=== PATIENT | male | born 1935 | race Caucasian/White ===

== ENCOUNTER → 2017-03-31 | Outpatient (CLI) | payer MEDICARE ==
[~2017-03-31] MED LIST: ASPI-84; ATEN25TA; ATEN50TA PO; ATOR80TA76 PO; ATR20T; CALC-250 PO; ENAL1TAB16 PO; PRAM15FO3 TP
--- NOTE | 2017-03-31 09:23 | Diagnostic Imaging Report ---
INDICATION: Elevated liver function. FINDINGS: The liver is not enlarged. There is a 4 cm cyst along the medial aspect of the left lobe of the liver which is unchanged in appearance since previous CT scan. Bile ducts are not dilated. The gallbladder is absent. There is considerable obscuration of detail centrally due to bowel gas. The right kidney appears normal. Portal and hepatic vein are patent. The kidneys appear normal without obstruction or mass. No evidence of aortic aneurysm. Aorta is atherosclerotic. There is no ascites. There is a 4 cm complex cyst noted just inferior to the body of the pancreas in the midline which also was present on previous CT scan and appear stable. This may be duodenal in origin. IMPRESSION: 1. Complex cyst along the third portion of the duodenum appear stable measuring 4 cm. 2. Stable appearing cyst medial aspect of the left lobe of the liver. 3. Bile ducts are not dilated. Dictated by: Dictated on workstation # [id number]
== END ==
LOC: RAD 07:11
PROVIDERS: ATTEND Internal Medicine
DX: K76.89 Other specified diseases of liver (principal); K63.89 Other specified diseases of intestine
CPT/HCPCS: 76705

== ENCOUNTER → 2017-08-12 | Outpatient (CLI) | payer MEDICARE ==
--- NOTE | 2017-08-12 20:26 | Diagnostic Imaging Report ---
Three views of the lumbar spine. INDICATION: Low back pain. FINDINGS: There is straightening of the lordotic curvature likely related to muscle spasm. There is preserved vertebral body height in the lumbar spine. There is mild anterior wedging of T12 vertebral body however which could relate to an age-indeterminate compression fracture. The alignment at the posterior spinal line is satisfactory. There is severe disc height loss at the L4-L5 level with anterior and posterior osteophytes. Multilevel anterior osteophytes are seen also at other lumbar spine levels. There is mild disc height loss at the L3-L4 level with vacuum phenomenon at multiple levels seen most prominent at L3-L4. There is also suggestion of facet arthropathy in the mid and lower lumbar spine. The SI joints demonstrate moderate degenerative changes. 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 Dictated by: Dictated on workstation # [id number]
--- NOTE | 2017-08-12 20:30 | Diagnostic Imaging Report ---
Three views of the sacrum and coccyx. INDICATION: Low back pain. FINDINGS: Prominent degenerative changes in the lower lumbar spine are seen. There are moderate sclerotic degenerative changes in the SI joints with question of early left SI joint fusion. There is good alignment. There are radiopaque markers of a mesh probably related to right inguinal hernia repair. IMPRESSION: Moderate degenerative changes and question of early fusion of the left SI joint. Dictated by: Dictated on workstation # [id number]
== END ==
LOC: RAD 09:06
PROVIDERS: ATTEND Nurse Practitioner
DX: M47.816 Spondylosis without myelopathy or radiculopathy, lumbar region (principal); M47.818 Spondylosis without myelopathy or radiculopathy, sacral and sacrococcygeal region
CPT/HCPCS: 72100; 72220

== ENCOUNTER → 2020-10-18 | Emergency (ER) | payer MEDICARE ==
[~2020-10-18] VITALS: Ht 175 cm; Wt 90.0 kg
[~2020-10-18] MED LIST changes: +ACID1TAB PO; +CIPR-225 PO; +DILT300C71 PO; +Finasteride PO; +MTP100TCR PO; +PANT40TA52 PO; +RISP0.253 PO; +TMSL.4C PO
[2020-10-18 09:10] VITALS: BP 139/74
[2020-10-18 09:20] LABS: BASOPHILS # (AUTO) 0.1 10^3/uL (0.0-0.1); BASOPHILS % (AUTO) 1 % (0-10); EOSINOPHILS # (AUTO) 0.2 10^3/uL (0.0-0.3); EOSINOPHILS % (AUTO) 3 % (0-10); HEMATOCRIT 48 % (40-54); HEMOGLOBIN 16.3 g/dL (13.3-17.7); LYMPHOCYTES # (AUTO) 1.4 10^3/uL (1.0-4.0); LYMPHOCYTES % (AUTO) 22 % (12-44); MEAN CORPUSCULAR HEMOGLOBIN 32 pg (25-34); MEAN CORPUSCULAR HGB CONC 34 g/dL (32-36); MEAN CORPUSCULAR VOLUME 92 fL (80-99); MEAN PLATELET VOLUME 10.4 fL (9.0-12.2); MONOCYTES # (AUTO) 0.4 10^3/uL (0.0-1.0); MONOCYTES % (AUTO) 7 % (0-12); NEUTROPHILS # (AUTO) 4.3 10^3/uL (1.8-7.8); NEUTROPHILS % (AUTO) 68 % (42-75); PLATELET COUNT 161 10^3/uL (130-400); WHITE BLOOD COUNT 6.3 10^3/uL (4.3-11.0)
[2020-10-18 09:32] LABS: ALBUMIN 3.9 GM/DL (3.2-4.5); CHLORIDE 110 MMOL/L (98-107); POTASSIUM 4.5 MMOL/L (3.6-5.0); SODIUM 142 MMOL/L (135-145)
[2020-10-18 09:34] LABS: CALCIUM 8.8 MG/DL (8.5-10.1)
[2020-10-18 09:35] LABS: GLUCOSE 96 MG/DL (70-105); TOTAL PROTEIN 6.5 GM/DL (6.4-8.2)
[2020-10-18 09:36] LABS: CARBON DIOXIDE 24 MMOL/L (21-32)
[2020-10-18 09:37] LABS: BILIRUBIN,TOTAL 1.4 MG/DL (0.1-1.0)
[2020-10-18 09:38] LABS: ALKALINE PHOSPHATASE 131 U/L (40-136)
[2020-10-18 09:39] LABS: CREATININE SERUM 0.86 MG/DL (0.60-1.30); GFR ESTIMATED > 60
[2020-10-18 09:40] LABS: BUN/CREATININE RATIO 14
[2020-10-18 09:41] LABS: ALANINE AMINOTRANSFERASE 17 U/L (0-55)
[2020-10-18 09:42] LABS: LIPASE 48 U/L (8-78)
--- NOTE | 2020-10-18 10:00 | Diagnostic Imaging Report ---
INDICATION: Constipation, prostate cancer. FINDINGS: There is stool at the rectal vault but no patricia impaction or obstruction. There is air in the stomach, no free intraperitoneal air in the upright views. There are severe arthritic changes to the right greater than left hips as well as substantial degenerative changes to the visualized spine. Clips are at the gallbladder fossa. There is hernia repair markers overlying the right lower quadrant. IMPRESSION: There may be mild rectal constipation but no evidence for patricia obstruction or impaction. No free air. Chronic degenerative bony changes. Dictated by: Dictated on workstation # [id number]
--- NOTE | 2020-10-18 11:05 | ED GI ---
General Chief Complaint: Abdominal/GI Problems Stated Complaint: CONSTIPATION, PROSTATE CA, ALZHEIMERS Nursing Triage Note: states patient constipated x4 days, states "just water" states pt straining this morning complaining of pain in abdomen Sepsis Screen: No Definite Risk Source of Information: Patient, Family (RINA BLAKE MED STUDENT) History of Present Illness Date Seen by Provider: Oct 18, 2020 Time Seen by Provider: 10:15 Initial Comments This is an 85 year old male presenting to the Emergency Department accompanied by his for a chief complaint of constipation and prostate problems. This started last night before bed with pain on the toilet. This morning the patient had epigastric pain. He has difficulty with defecation but denies difficulty with urination. He denies pain in the ER and states he only has pain on the toilet. PMHx: prostate cancer. Alzheimer's. (RINA BLAKE MED STUDENT) Initial Comments Patient reported some central abdominal pain earlier in the day while trying to have a bowel movement. He reports constipation. He also reports prostate problems but denies urinary hesitancy. (CYNTHIA ULRICH MD) Allergies and Home Medications Allergies Coded Allergies: No Known Drug Allergies (Verified , 02/21/09) Home Medications Atorvastatin Calcium 80 Mg Tablet, 40 MG PO DAILY, (Reported) TAKES 1/2 OF A (80 MG) TABLET Cholecalciferol 5,000 Unit Capsule, 5,000 UNIT PO DAILY, (Reported) Ciprofloxacin HCl 500 Mg Tablet, 500 MG PO BID Prescribed by: ROSANA BUNCH on 01/14/18956 Diltiazem HCl 300 Mg Cap.er.24h, 300 MG PO DAILY Prescribed by: ROSANA BUNCH on 01/14/18956 L. Acidophilus/Bulgaricus 1 Each Tablet, 1 TAB.CHEW PO AC Prescribed by: ROSANA BUNCH on 01/14/18956 Metoprolol Succinate 100 Mg Tab.er.24h, 100 MG PO DAILY Prescribed by: ROSANA BUNCH on 01/14/18956 Pantoprazole Sodium 40 Mg Tablet.dr, 40 MG PO DAILY, (Reported) Risperidone 0.25 Mg Tablet, 0.25 MG PO BID Prescribed by: ROSANA BUNCH on 01/14/18956 Tamsulosin HCl 0.4 Mg Cap, 0.4 MG PO DAILY@1800 Prescribed by: ROSANA BUNCH on 01/14/18956 [Finasteride] 5 MG TAB, 5 MG PO DAILY Prescribed by: ROSANA BUNCH on 01/14/18956 Patient Home Medication List Home Medication List Reviewed: Yes (CYNTHIA ULRICH MD) Review of Systems Review of Systems Constitutional: no symptoms reported EENTM: No Symptoms Reported Respiratory: No Symptoms Reported Cardiovascular: No Symptoms Reported Gastrointestinal: Abdominal Pain, Constipated Genitourinary: No Symptoms Reported; Denies Frequency Musculoskeletal: no symptoms reported Skin: no symptoms reported Psychiatric/Neurological: No Symptoms Reported Endocrine: No Symptoms Reported Hematologic/Lymphatic: No Symptoms Reported (RINA BLAKE) Past Zranofb-Mljqnh-Djbeoy Hx Patient Social History Recent Infectious Disease Expo: No (RINA BLAKE) Immunizations Up To Date Tetanus Booster (TDap): Unknown Date of Pneumonia Vaccine: Jul 16, 2015 Date of Influenza Vaccine: Jul 16, 2015 (RINA BLAKE) Past Medical History Surgeries: Yes (umb and ing hernia repairs, right shoulder sx, dental and nasal sx, ) Respiratory: No Cardiac: Yes Neurological: Yes (Alzheimers) Reproductive Disorders: No Sexually Transmitted Disease: No Genitourinary: Yes Prostate Problems Gastrointestinal: Yes Hiatal Hernia Musculoskeletal: Yes (arthritis ) Endocrine: No Cancer: Yes Prostate Psychosocial: No Integumentary: No Blood Disorders: No (RINA BLAKE) Physical Exam Vital Signs Vital Signs - First Documented 10/18/20 09:10 Temp 36.3 Pulse 50 Resp 20 B/P (MAP) 139/74 (95) Pulse Ox 98 O2 Delivery Room Air (CYNTHIA ULRICH MD) Vital Signs Capillary Refill : Less Than 3 Seconds (RINA BLAKE) Height/Weight/BMI Height: 5'11.00" Weight: 205lbs. 1.0oz. [id number]; 29.00 BMI Method:Stated (RINA BLAKE) General Appearance: WD/WN, no apparent distress HEENT: PERRL/EOMI, normal ENT inspection Neck: normal inspection Respiratory: lungs clear, normal breath sounds, no respiratory distress Cardiovascular: regular rate, rhythm, no edema, no murmur Gastrointestinal: normal bowel sounds, non tender, soft Extremities: normal inspection, no pedal edema Neurologic/Psychiatric: facialist II-XII nml as tested, no motor/sensory deficits, alert, normal mood/affect Skin: normal color, warm/dry (CYNTHIA ULRICH MD) Progress/Results/Core Measures Results/Orders Lab Results Laboratory Tests Test 10/18/20 09:10 10/18/20 12:35 Range/Units White Blood Count 6.3 4.3-11.0 10^3/uL Red Blood Count 5.17 4.30-5.52 10^6/uL Hemoglobin 16.3 13.3-17.7 g/dL Hematocrit 48 40-54 % Mean Corpuscular Volume 92 80-99 fL Mean Corpuscular Hemoglobin 32 25-34 pg Mean Corpuscular Hemoglobin Concent 34 32-36 g/dL Red Cell Distribution Width 12.6 10.0-14.5 % Platelet Count 161 130-400 10^3/uL Mean Platelet Volume 10.4 9.0-12.2 fL Immature Granulocyte % (Auto) 0 % Neutrophils (%) (Auto) 68 42-75 % Lymphocytes (%) (Auto) 22 12-44 % Monocytes (%) (Auto) 7 0-12 % Eosinophils (%) (Auto) 3 0-10 % Basophils (%) (Auto) 1 0-10 % Neutrophils # (Auto) 4.3 1.8-7.8 10^3/uL Lymphocytes # (Auto) 1.4 1.0-4.0 10^3/uL Monocytes # (Auto) 0.4 0.0-1.0 10^3/uL Eosinophils # (Auto) 0.2 0.0-0.3 10^3/uL Basophils # (Auto) 0.1 0.0-0.1 10^3/uL Immature Granulocyte # (Auto) 0.0 0.0-0.1 10^3/uL Sodium Level 142 135-145 MMOL/L Potassium Level 4.5 3.6-5.0 MMOL/L Chloride Level 110 H 98-107 MMOL/L Carbon Dioxide Level 24 21-32 MMOL/L Anion Gap 8 5-14 MMOL/L Blood Urea Nitrogen 12 7-18 MG/DL Creatinine 0.86 0.60-1.30 MG/DL Estimat Glomerular Filtration Rate > 60 BUN/Creatinine Ratio 14 Glucose Level 96 70-105 MG/DL Calcium Level 8.8 8.5-10.1 MG/DL Corrected Calcium 8.9 8.5-10.1 MG/DL Total Bilirubin 1.4 H 0.1-1.0 MG/DL Aspartate Amino Transf (AST/SGOT) 18 5-34 U/L Alanine Aminotransferase (ALT/SGPT) 17 0-55 U/L Alkaline Phosphatase 131 40-136 U/L Total Protein 6.5 6.4-8.2 GM/DL Albumin 3.9 3.2-4.5 GM/DL Lipase 48 8-78 U/L Urine Color YELLOW Urine Clarity CLEAR Urine pH 8.5 5-9 Urine Specific [place] 1.010 L 1.016-1.022 Urine Protein NEGATIVE NEGATIVE Urine Glucose (UA) NEGATIVE NEGATIVE Urine Ketones NEGATIVE NEGATIVE Urine Nitrite NEGATIVE NEGATIVE Urine Bilirubin NEGATIVE NEGATIVE Urine Urobilinogen 1.0 < = 1.0 MG/DL Urine Leukocyte Esterase NEGATIVE NEGATIVE Urine RBC (Auto) NEGATIVE NEGATIVE Urine RBC NONE /HPF Urine WBC 0-2 /HPF Urine Squamous Epithelial Cells RARE /HPF Urine Crystals PRESENT H /LPF Urine Amorphous Sediment RARE KIAN PHOSPHATE H /LPF Urine Bacteria NEGATIVE /HPF Urine Casts NONE /LPF Urine Mucus SMALL H /LPF Urine Culture Indicated NO (CYNTHIA ULRICH MD) My Orders Orders - CYNTHIA ULRICH MD Cbc With Automated Diff (10/18/20 09:14) Comprehensive Metabolic Panel (10/18/20 09:14) Lipase (10/18/20 09:14) Abdomen, Flat & Upright/Decub (10/18/20 09:14) Bladder Scan (10/18/20 10:21) Ua Culture If Indicated (10/18/20 11:30) (CYNTHIA ULRICH MD) Vital Signs/I&O 10/18/20 09:10 Temp 36.3 Pulse 50 Resp 20 B/P (MAP) 139/74 (95) Pulse Ox 98 O2 Delivery Room Air (CYNTHIA ULRICH MD) Blood Pressure Mean: 95 Progress Progress Note : Progress Note - Due to the patient's complaint of abdominal pain and constipation, a bladder scan and x-ray were ordered. IV line was established. Bladder scan revealed no abnormalities. Abdominal x-ray revealed no obstruction but showed some possible signs of constipation. (RINA BLAKE MED STUDENT) Progress Note : Progress Note KUB and upright x-rays demonstrated some rectal constipation. Bladder scan was obtained to rule out urinary obstruction as a contributing factor. There was no urine in the bladder at the time of scan. We discussed using suppositories and enemas to help with the rectal constipation. His prefers to do this at home. (CYNTHIA ULRICH MD) Diagnostic Imaging Diagonstic Imaging: Xray Plain Films/CT/US/NM/MRI: abdomen Comments NAME: SANTOSH BATRES [facility] REC#: [id number] PT STATUS: REG ER : 1935 PHYSICIAN: CYNTHIA ULRICH MD ADMIT DATE: 10/18/20/ER Draft Date of Exam:10/18/20 ABDOMEN, FLAT & UPRIGHT/DECUB INDICATION: Constipation, prostate cancer. FINDINGS: There is stool at the rectal vault but no patricia impaction or obstruction. There is air in the stomach, no free intraperitoneal air in the upright views. There are severe arthritic changes to the right greater than left hips as well as substantial degenerative changes to the visualized spine. Clips are at the gallbladder fossa. There is hernia repair markers overlying the right lower quadrant. IMPRESSION: There may be mild rectal constipation but no evidence for patricia obstruction or impaction. No free air. Chronic degenerative bony changes. Dictated on workstation # [id number] Dict: 10/18/20 0956 Trans: 10/18/20 1000 [facility] [id number] Interpreted by: MARIANELA MEMBRENO Electronically signed by: (RINA BLAKE MED STUDENT) Departure Impression Primary Impression: Constipation Qualified Codes: K59.00 - Constipation, unspecified Additional Impression: Generalized abdominal pain Disposition: HOME, SELF-CARE Condition: Improved Departure-Patient Inst. Decision time for Depature: 11:21 (CYNTHIA ULRICH MD) Referrals: RAYSA ADORNO MD (PCP/Family) Primary Care Physician Patient Instructions: Constipation in Adults, Severe Abdominal Pain, Adult (DC) Add. Discharge Instructions: Drink plenty of clear liquids. Eat a diet high in fiber. Adhere to a clear liquid diet today until a good bowel movement is produced. You may use enemas and suppositories at home. Tylenol and/or ibuprofen may be used to treat the pain. You may take up to 400 mg of ibuprofen every 6 hours as needed and Tyl enol up to 1000 mg every 6 hours as needed. Return to care or call if you have any other questions or concerns. Return to the ER with notable worsening of condition. All discharge instructions reviewed with patient and/or family. Voiced understanding. Medical Student Attestation and Attending Note: I have personally interviewed and examined this patient along with Rina Blake, MS 3. I have reviewed student documentation including history, physical, and assessments. I agree with the documentation except where otherwise noted. (CYNTHIA ULRICH MD) RINA BLAKE MED STUDENT Oct 18, 2020 11:05 CYNTHIA ULRICH MD Oct 18, 2020 11:22
[2020-10-18 12:44] LABS: BILIRUBIN,URINE NEGATIVE (NEGATIVE); CLARITY,URINE CLEAR; COLOR,URINE YELLOW; GLUCOSE, URINE (UA) NEGATIVE (NEGATIVE); KETONES,URINE NEGATIVE (NEGATIVE); LEUKOCYTE ESTERASE ,URINE NEGATIVE (NEGATIVE); NITRITE,URINE NEGATIVE (NEGATIVE); PH,URINE 8.5 (5-9); PROTEIN,URINE NEGATIVE (NEGATIVE)
[2020-10-18 12:51] LABS: AMORPHOUS SEDIMENT,UR RARE AMOR PHOSPHATE /LPF; BACTERIA,URINE NEGATIVE /HPF; SQUAMOUS EPITHELIAL CELL,UR RARE /HPF; WBC,URINE 0-2 /HPF
== END ==
LOC: EDUNIT# 08:57 → ER 08:59
DX: K59.00 Constipation, unspecified (principal); R10.13 Epigastric pain; Z85.46 Personal history of malignant neoplasm of prostate
CPT/HCPCS: 36415; 74019; 80053; 81000; 83690; 85025